=== PATIENT | female | born 1950 | race Caucasian/White ===

== ENCOUNTER → 2016-09-15 | Outpatient (CLI) | payer MEDICARE, OTHER ==
--- NOTE | 2016-09-15 16:57 | CT ---
EXAMINATION TYPE: CT thoracic spine wo con DATE OF EXAM: 09/15/2016 COMPARISON: NONE HISTORY: 14-year-old female osteomyelitis, hx of thoracic injury and surgery TECHNIQUE: Contiguous axial scanning of the thoracic spine without IV contrast. Coronal and sagittal reconstructions performed. CT DLP: 947.0 mGycm Automated exposure control for dose reduction was used. FINDINGS: Small left greater than right pleural effusions. Patchy atelectasis or infiltrate at the posterior ri ght base. A lap band device is present. Calcified mediastinal and right hilar lymph nodes compatible with prior granulomatous disease. Additional calcified granulomas in the spleen There appears to be chronic endplate erosion centered at T8-T9. There is proximally 40% overall heigh t loss of both the T8 and T9 vertebral bodies as result. Alignment is maintained. No large paravertebral abnormality is identified. There is T6-T11 posterior fusion. Corresponding laminectomies are also present. At T6, there is slight medial cortical violation of the right pedicular screw without significant can al encroachment. At T7, there is greater degree of medial cortical violation by the right-sided pedicular screw narrow ing the lateral recess. Minimal medial cortical violation by the right T10 pedicular screw without significant canal encroach ment. IMPRESSION: 1. ENDPLATE EROSION CENTERED AT T8-T9 LIKELY SEQUELA OF PATIENT'S DISCITIS OSTEOMYELITIS. THERE IS OV ERALL 40% HEIGHT LOSS OF BOTH THE T8 AND T9 VERTEBRAL BODIES. THERE MAY BE SOME DEGREE OF COMPROMISE OF THE BILATERAL NEUROFORAMINA AT THIS LEVEL. 2. T6-T11 POSTERIOR FUSION WITH LAMINECTOMIES. 3. POSITIONING OF THE T6, T7, AND T10 PEDICULAR SCREWS ABOVE. 4. SMALL LEFT GREATER THAN RIGHT PLEURAL EFFUSIONS WITH PATCHY ATELECTASIS OR INFILTRATE AT THE POSTE RIOR RIGHT BASE.
== END | disposition home or self-care (01) ==
LOC: RADCTMAIN 14:00
PROVIDERS: ATTEND Internal Medicine
DX: M85.88 Other specified disorders of bone density and structure, other site (principal); Z98.1 Arthrodesis status; Z98.890 Other specified postprocedural states
CPT/HCPCS: 72128